=== PATIENT | male | born 2000 | race Two or more races ===

== ENCOUNTER 2024-03-30 18:59 | Emergency (ER) | payer OTHER ==
[~2024-03-30] VITALS: Ht 172.7 cm; Wt 68.0 kg
[2024-03-30] MEDS ORDERED: HYDR30CR79 TP (20:33)
[2024-03-30 20:46] VITALS: BP 132/90; TEMP 99.4; O2SAT 100
== END 2024-03-30 20:46 | disposition home or self-care (01) ==
LOC: ER 19:05
DX: K64.4 Residual hemorrhoidal skin tags (principal)